=== PATIENT | female | born 1980 | race Caucasian/White ===

== ENCOUNTER 2017-08-20 04:06 | Emergency (ER) | payer MEDICAID ==
[2017-08-20] MEDS ORDERED: ONDANSETRON HCL/PF 2 MG/ML VIAL IV ONE (04:25)
[2017-08-20 04:26] LABS: Urine Bilirubin Negative (NEGATIVE); Urine Blood Negative /ul (NEGATIVE); Urine Ketone 15 mg/dL (NEGATIVE); Urine Nitrite Negative (NEGATIVE); Urine Protein 15 mg/dL (NEGATIVE); Urine Specific Gravity <=1.005 SP.GR. (1.005-1.010); Urine Urobilinogen Normal (NORMAL); Urine pH 8.5 pH (5.0-7.0)
[2017-08-20] MEDS ORDERED: ONDANSETRON HCL/PF 2 MG/ML VIAL ONE (04:32)
[2017-08-20 04:33] LABS: Urine Appearance Clear; Urine Bacteria TRACE; Urine Color Yellow; Urine RBC None Seen /hpf (0-5); Urine WBC 0-5 /hpf (0-5)
[2017-08-20 04:37] LABS: Hematocrit 42.1 % (37.0-47.0); Hemoglobin 14.4 gm/dL (12.5-16.0); Mean Cell Volume 83.9 fl (78-100); Mean Corpuscular Hemoglobin 28.7 pg (27-31); Mean Corpuscular Hgb Conc 34.2 g/dl (32-36); Mean Platelet Volume 11.1 fl (6.0-9.5); Neutrophil % 71.4 % (42-75.0); Platelet Count 204 K/mm3 (150-450); Red Blood Count 5.02 M/mm3 (4.2-5.4); Red Cell Distribution Width 12.8 % (11.5-14.0)
--- NOTE | 2017-08-20 04:37 | ERNOTE ---
Abdominal HPI - General Chief Complaint: Abdominal Pain Time Seen by Provider: 08/20/17 04:21 Source: patient Exam Limitations: clinical condition - Immun/Allergies/Home Medications Immunizatons: IMMUNIZATION HX Immunizations Up to Date Yes History of Influenza Vaccine No Hx Pneumococcal Vaccination No Allergies/Adverse Reactions: Allergies No Known Allergies Allergy (Verified 07/31/16 18:59) Home Medications: HOME MEDICATIONS Dicyclomine HCl [Bentyl] 10 - 20 mg PO TID #20 tab 08/20/17 [Last Taken Unknown] - History of Present Illness Narrative: Pt states she was awakened by sharp abdominal pain throughout the abdomen. No radiation and no modifying factors Timing: constant, getting worse Quality: moderate, severe, sharpness Activities at Onset: sleep Prior Abdominal Problems: Present: none Review of Systems - Review of Systems Constitutional: Absent: recent illness, fever, chills EYE: Present: no symptoms reported ENT: Present: no symptoms reported Respiratory: Absent: shortness of breath Cardiology: Absent: chest pain Gastrointestinal/Abdominal: Present: See HPI, nausea, vomiting Genitourinary: Absent: frequency, pain, dysuria Musculoskeletal: Absent: back pain Skin: Absent: rash Neurological: Present: no symptoms reported Endocrine: Absent: excessive sweating Hematologic/Lymphatic: Present: no symptoms reported Psych: Present: no symptoms reported - Patient's Past Medical History Patient History - Medical: No pertinent hx Patient History - Cardiac/Respiratory: No pertinent hx Patient History - Cancer: No Hx of Cancer Patient History - Surgical Procedures: Tubal Ligation, Other Patient History - Other: None LMP (females 10-50): last week - Family History Mother Family History - Cardiac/Respiratory: Asthma, COPD Father Family History - Medical: History Unknown - Social History Living Situations: spouse Abuse History: No History of abuse Psych History: Hx of Anxiety, Hx of Depression Smoking Status: Current some day smoker Have you smoked in the past 12 months: Yes Do you dip or chew tobacco: No Alcohol Use: occasionally Drug Use: none - Immunizations Immunizations Up to Date: Yes Hx Pneumococcal Vaccination: No History of Influenza Vaccine: No Physical Exam - Physical Exam General Appearance: Present: wd/wn, alert, moderate distress, irritable Head Exam: Present: normal inspection, no evidence of injury Eye Exam: Normal inspection: bilateral Neck: Present: normal inspection, nontender Respiratory: Present: no respiratory distress, no accessory muscle use, lungs clear Cardiovascular/Chest: Present: regular rate, rhythm, no murmur Gastrointestinal/Abdominal: Present: nontender, nondistended, soft, abnormal bowel sounds - hyperactive. Absent: distended, guarding, rebound Back Exam: Present: normal inspection, normal range of motion, no CVA tenderness , no vertebral tenderness Extremity Exam: Present: normal inspection, normal range of motion, no edema Neurological Exam: Present: alert, oriented Skin Exam: Present: normal color, warm/dry Lymphatic Exam: Present: no adenopathy ED Progress - Results and Orders Patient's Lab Results:: I have reviewed the patient's lab results. Results and Orders: Laboratory Tests 08/20/17 08/20/17 08/20/17 04:20 04:20 04:30 WBC 7.0 Hgb 14.4 Hct 42.1 Plt Count 204 Sodium Potassium Chloride Carbon Dioxide Anion Gap BUN Creatinine Urine Color Yellow Urine Appearance Clear Urine pH 8.5 Ur Specific [place] <=1.005 Urine Protein 15 H Urine Glucose (UA) Negative Urine Ketones 15 Urine Blood Negative Urine Nitrate Negative Urine Bilirubin Negative Prot Sulfosalicylic Acd Negative Urine Urobilinogen Normal Ur Leukocyte Esterase Negative Urine RBC None seen Urine WBC 0-5 Ur Epithelial Cells 0-5 Urine Bacteria Trace Urine Culture Comments No culture indicated Urine HCG, Qual Negative 08/20/17 04:30 WBC Hgb Hct Plt Count Sodium 140 Potassium 3.3 L Chloride 102 Carbon Dioxide 22.5 L Anion Gap 18.8 H BUN 16 Creatinine 0.98 Urine Color Urine Appearance Urine pH Ur Specific [place] Urine Protein Urine Glucose (UA) Urine Ketones Urine Blood Urine Nitrate Urine Bilirubin Prot Sulfosalicylic Acd Urine Urobilinogen Ur Leukocyte Esterase Urine RBC Urine WBC Ur Epithelial Cells Urine Bacteria Urine Culture Comments Urine HCG, Qual - Vital Signs Patient's Vital Signs:: I have reviewed the patient's vital signs. Vital Signs: Vital Signs 08/20/17 04:09 Temperature 36.6 C Pulse Rate 79 Respiratory 16 Rate Blood Pressure 93/54 O2 Sat by Pulse 96 Oximetry - X-Ray X-Ray #1 X-Ray: abdomen Interpretation: Interp. by me X-ray Comments: non specific bowel gas pattern. No evidence of obstruction - Progress/Reassessment Chief Complaint: Abdominal Pain Progress:: Improved Progress Note-Subjective: 08/20/17 06:22 Pt improved after IM bentyl. discussed abdominal pain and normal results. Encouraged pt to return to ED if not improving Departure Clinical Impression: Abdominal pain Qualifiers: Abdominal location: generalized Qualified Code(s): R10.84 - Generalized abdominal pain - Departure Disposition: Home self-care Condition: Good Instructions: Abdominal Pain, Adult, [id number] Additional Instructions: Take medicine as prescribed. See your regular doctor if symptoms persist. Return to ER if symptoms worsen Prescriptions: Dicyclomine HCl [Bentyl] 10 - 20 mg PO TID #20 tab
[2017-08-20 04:50] LABS: Albumin * 4.4 gm/dl (3.4-5.0); Anion Gap 18.8 mmol/L (6.8-13.8); BUN/Creatinine Ratio 16.3 (9.0-21.6); Bilirubin, Total 0.5 mg/dL (0.0-1.1); Ca. Corrected For Albumin 8.6 mg/dL (8.4-10.2); Calcium * 9.2 mg/dL (7.9-10.9); Carbon Dioxide 22.5 mmol/L (24-32.6); Potassium 3.3 mmol/L (3.4-4.6); Total Protein 8.4 gm/dL (6.2-8.2)
[2017-08-20] MEDS ORDERED: DICYCLOMINE HCL 10 MG/ML AMPUL IM ONE ×2 (05:13→05:16)
[2017-08-20 06:34] VITALS: BP 111/59
== END 2017-08-20 06:33 | disposition home or self-care (01) ==
LOC: ER 04:06
DX: R10.84 Generalized abdominal pain (principal)
CPT/HCPCS: 36415; 74020; 80053; 81001; 82150; 83690; 84703; 85025; 96372; 96374; 99284; J2405

== ENCOUNTER 2019-04-06 22:53 | Observation (INO) ==
[2019-04-06] MEDS ORDERED: ONDANSETRON HCL/PF 2 MG/ML VIAL IV ONE (23:50)
[2019-04-06] MEDS ORDERED: KETOROLAC TROMETHAMINE 30 MG/ML VIAL IV ONE (23:51)
[2019-04-06] MEDS ORDERED: NORMAL SALINE 1,000 ML IV ONE (23:51)
--- NOTE | 2019-04-06 23:54 | ERNOTE ---
Abdominal HPI - General Chief Complaint: Abdominal Pain Time Seen by Provider: 04/06/19 23:48 Source: patient Exam Limitations: clinical condition - Immun/Allergies/Home Medications Immunizatons: IMMUNIZATION HX Immunizations Up to Date Yes History of Influenza Vaccine No Hx Pneumococcal Vaccination No Allergies/Adverse Reactions: Allergies No Known Allergies Allergy (Verified 04/06/19 23:52) Home Medications: HOME MEDICATIONS NK 04/06/19 [Last Taken Unknown] - History of Present Illness Narrative: Patient had onset of right upper quadrant abdominal pain approximately 2 hours prior to arrival. She has had previous episodes of this 1 year and 3 years ago. She never followed up with her PCP for any further testing after those ER visits. Timing: getting worse Quality: moderate, severe, sharpness Review of Systems - Review of Systems Constitutional: Absent: recent illness, fever, chills ENT: Absent: nose congestion, nasal drainage Respiratory: Absent: shortness of breath, cough Cardiology: Absent: chest pain Gastrointestinal/Abdominal: Present: See HPI, diarrhea - today Genitourinary: Absent: frequency, pain, dysuria Musculoskeletal: Absent: back pain, muscle pain Skin: Absent: rash Neurological: Absent: headache, dizziness/light-headedness Endocrine: Absent: excessive sweating Hematologic/Lymphatic: Absent: easy bruising, easy bleeding Psych: Absent: anxiety, depressed Medical History (Updated 04/07/19 @ 04:08 by Calvin Borges DO) Bipolar 1 disorder Onset Date: Unknown History of frequent headaches Onset Date: Unknown Major depression Onset Date: Unknown Scoliosis Onset Date: Unknown Vitamin deficiency Onset Date: Unknown Surgical History: Surgical History (Updated 07/22/18 @ 17:10 by Chris Mckinney LPN) H/O tubal ligation Onset Date: Unknown Family History: Family History (Updated 07/22/18 @ 17:15 by Chris Mckinney LPN) Other No family history of disorders Social History: Preferred Language Belarusian Smoking Status Never smoker Have you smoked in the past 12 No months Abuse History No History of abuse Psych History Hx of Anxiety,Hx of Depression Alcohol Use none Drug Use none (Last Updated 07/22/18 @ 17:09 by Chris Mckinney LPN) No Social History Section defined Physical Exam - Physical Exam General Appearance: Present: wd/wn, alert, moderate distress Head Exam: Present: normal inspection, no evidence of injury Neck: Present: normal inspection, nontender, supple, full range of motion Respiratory: Present: no respiratory distress, chest nontender, lungs clear Cardiovascular/Chest: Present: regular rate, rhythm, no murmur Gastrointestinal/Abdominal: Present: normal bowel sounds, nondistended, soft, tenderness - epigastric and RUQ. , guarding - mild. Absent: rebound Back Exam: Present: normal inspection, normal range of motion, no CVA tenderness Extremity Exam: Present: normal inspection, normal range of motion, no edema Neurological Exam: Present: alert, oriented, normal mood/affect Skin Exam: Present: normal color, warm/dry Progress - Results and Orders Patient's Lab Results:: I have reviewed the patient's lab results. Results and Orders: Laboratory Tests 04/06/19 04/06/19 04/06/19 11:58 11:58 11:58 WBC 14.9 H Hgb 14.6 Hct 44.2 Plt Count 321 Neutrophils % 89.5 H Sodium 143 H Potassium 3.7 Chloride 101 Carbon Dioxide 25.8 BUN 13 Creatinine 0.91 Random Glucose 154 H Calcium 9.7 Total Bilirubin 0.4 AST 29 ALT 34 Total Protein 9.0 H Albumin 4.4 Amylase 47 Lipase 56 L Serum HCG, Qual Negative Urine Color Urine Appearance Urine pH Ur Specific [place] Urine Protein Urine Glucose (UA) Urine Ketones Urine Blood Urine Nitrate Ur Leukocyte Esterase Urine Bacteria Urine Mucus Urine Culture Comments 04/07/19 02:58 WBC Hgb Hct Plt Count Neutrophils % Sodium Potassium Chloride Carbon Dioxide BUN Creatinine Random Glucose Calcium Total Bilirubin AST ALT Total Protein Albumin Amylase Lipase Serum HCG, Qual Urine Color Dark yellow Urine Appearance Slightly cloudy Urine pH 6.5 Ur Specific [place] 1.020 Urine Protein 15 H Urine Glucose (UA) Negative Urine Ketones 15 Urine Blood Negative Urine Nitrate Negative Ur Leukocyte Esterase Negative Urine Bacteria Trace Urine Mucus Trace Urine Culture Comments No culture indicated - Vital Signs Patient's Vital Signs:: I have reviewed the patient's vital signs. Vital Signs: Vital Signs 04/06/19 23:37 Temperature 36.1 C Pulse Rate 76 Respiratory Rate 20 Blood Pressure 149/92 H O2 Sat by Pulse Oximetry 99 - CT/Ultrasound CT/Ultrasound Narrative: CT abdomen and pelvis with contrast IV and oral Mild distention of stomach and proximal small bowel filled with oral contrast material. Collapse: And distal small bowel. Bowel pattern nonspecific Per real radiology reading. - Progress/Reassessment Chief Complaint: Abdominal Pain Progress:: Improved Progress Note-Subjective: 04/07/19 04:[address] Mena and he agrees with observation admit for abdominal pain possible partial small bowel obstruction Departure Clinical Impression: Abdominal pain Qualifiers: Abdominal location: epigastric Qualified Code(s): R10.13 - Epigastric pain Elevated WBC count Qualifiers: Leukocytosis type: lymphocytosis Qualified Code(s): D72.820 - Lymphocytosis (symptomatic) - Departure Disposition: Still a patient Condition: Stable
[2019-04-07 00:04] LABS: Hematocrit 44.2 % (37.0-47.0); Hemoglobin 14.6 gm/dL (12.5-16.0); Mean Cell Volume 92.5 fl (78-100); Mean Corpuscular Hemoglobin 30.5 pg (27-31); Mean Platelet Volume 10.2 fl (8-12.5); Neutrophil # 13.4 K/mm3 (1.3-6.0); Neutrophil % 89.5 % (42-75.0); Platelet Count 321 K/mm3 (150-450); Red Blood Count 4.78 M/mm3 (4.2-5.4); Red Cell Distribution Width 13.5 % (11.5-14.0); White Blood Count 14.9 K/mm3 (4.0-10.5)
[2019-04-07 00:21] LABS: Albumin * 4.4 gm/dl (3.4-5.0); Anion Gap 19.9 mmol/L (6.8-13.8); BUN/Creatinine Ratio 14.3 (9.0-21.6); Bilirubin, Total 0.4 mg/dL (0.0-1.1); Ca. Corrected For Albumin 9.1 mg/dL (8.4-10.2); Calcium * 9.7 mg/dL (7.9-10.9); Carbon Dioxide 25.8 mmol/L (24-32.6); Potassium 3.7 mmol/L (3.4-4.6)
[2019-04-07] MEDS ORDERED: ONDANSETRON HCL/PF 2 MG/ML VIAL IV ONE (00:39)
[2019-04-07] MEDS ORDERED: DIATRIZOATE MEGLUMINE, SODIUM 30 ML BTL PO ONE (00:40)
[2019-04-07] MEDS ORDERED: NALBUPHINE HCL 20 MG/ML AMPUL IV ONE ×2 (01:05→01:46)
[2019-04-07] MEDS ORDERED: PROCHLORPERAZINE EDISYLATE 5 MG/ML VIAL IV ONE (02:54)
[2019-04-07 03:02] LABS: Urine Bilirubin Negative (NEGATIVE); Urine Blood Negative /ul (NEGATIVE); Urine Ketone 15 mg/dL (NEGATIVE); Urine Nitrite Negative (NEGATIVE); Urine Protein 15 mg/dL (NEGATIVE); Urine Urobilinogen Normal (NORMAL); Urine pH 6.5 pH (5.0-7.0)
[2019-04-07 03:03] LABS: Urine Appearance Slightly Cloudy (CLEAR); Urine Bacteria TRACE; Urine Color Dark Yellow; Urine Mucus TRACE; Urine RBC TRACE /hpf (0-5); Urine WBC TRACE /hpf (0-5)
[2019-04-07] MEDS ORDERED: MORPHINE SULFATE 2 MG/ML DISP.SYRIN IV ONE (03:07)
[2019-04-07] MEDS: MORPHINE SULFATE 2 MG/ML DISP.SYRIN IV PRN ×4 (04:51→13:58)
[2019-04-07] MEDS ORDERED: ACETAMINOPHEN 500 MG TABLET PO PRN (08:29)
[2019-04-07] MEDS: KETOROLAC TROMETHAMINE 30 MG/ML VIAL IV PRN ×2 (09:38→16:54)
[2019-04-07] MEDS: PROCHLORPERAZINE EDISYLATE 5 MG/ML VIAL IV PRN (09:39)
--- NOTE | 2019-04-07 11:29 | HP ---
Chief Complaint - Chief Complaint Date of Service: 04/07/19 Time of Service: : Chief Complaint: Abdominal Pain History of Present Illness: Amira is a 38 yo female that presents to the [facility] ER with sudden onset of epigastric and RUQ abdominal pain this morning. She reports no change in medication, diet, or activity. She reports having normal bowel movements until today which became loose. She has had nausea and vomiting, the last episodes having a little bit of blood. She reports that for the last month she has vomited daily, no blood in these episodes. She reports no problem with fatty foods. She does admit to heart burn but it is nothing like today's symptoms. She had a CT scan in the ER which showed possible early small bowel obstruction. She has a WBC of 14k. Denies fever and chills. 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 Smoking Status Former smoker Have you smoked in the past 12 No months Do you dip or chew tobacco No Abuse History No History of abuse Psych History Hx of Anxiety,Hx of Depression Alcohol Use none Drug Use none (Last Updated 07/22/18 @ 17:09 by Chris Mckinney LPN) No Social History Section defined Review Of Systems (GEN) - Review of Systems Generalized/Overall Review: Absent: Weakness, Chills, Fever EENTM: Present: No Symptoms Reported Respiratory: Absent: Cough, Shortness of Breath Cardiac: Absent: Chest Pain, Edema, Palpitations Abdominal: Present: Nausea, Vomiting, Hematemesis, Abdominal Pain. Absent: Constipation Genitourinary: Present: No Symptoms Reported Musculoskeletal: Present: No Symptoms Reported Neurological: Present: No Symptoms Reported Skin: Present: No Symptoms Reported Endocrine: Present: No Symptoms Reported Immunizations: IMMUNIZATION HX Immunizations Up to Date Yes History of Influenza Vaccine No Hx Pneumococcal Vaccination No Allergies/Adverse Reactions: Allergies Allergy/AdvReac Type Severity Reaction Status Date / Time No Known Allergies Allergy Verified 04/06/19 23:52 Home Medications: HOME MEDICATIONS NK 04/06/19 [Last Taken Unknown] Exam - Exam Vital Signs: Vital Signs - Last Taken Temp 36.6 C 04/07/19 08:13 Pulse 78 04/07/19 08:13 Resp 16 04/07/19 08:13 BP 106/57 04/07/19 08:13 Pulse Ox 97 04/07/19 08:13 Constitutional: Present: Alert, Oriented x3 ENT Exam: Present: normal ENT inspection Eye Exam: bilateral eye: normal inspection Respiratory: Present: lungs clear, normal breath sounds, no respiratory distress Cardiovascular/Chest: Present: regular rate, rhythm, no murmur Abdomen: Present: tender - Epigastric and severe RUQ pain, guarding - RUQ, hypoactive Skin Exam: Present: normal color, warm/dry, no cyanosis Lymphatic: Present: no adenopathy Appearance: Present: appropriate appearance, appropriate insight Eye contact: Present: cooperative, good eye contact, normal speech Thoughts: Present: normal thought pattern, no apparent hallucination Diagnostic Studies: Abnormal Lab Results 04/06/19 04/06/19 04/07/19 Range/Units 11:58 11:58 02:58 WBC 14.9 H (4.0-10.5) K/mm3 Immature Gran # (Auto) 0.05 H (0.000-0.0310) K/mm3 Neutrophils % 89.5 H (42-75.0) % Lymphocytes % 6.3 L (20-51) % Neutrophils # 13.4 H (1.3-6.0) K/mm3 Lymphocytes # 0.94 L (1.5-3.5) k/mm3 Sodium 143 H (132-142) mmol/L Plasma Sodium 144 H (130-142) mmol/L Anion Gap 19.9 H (6.8-13.8) mmol/L Random Glucose 154 H (70-110) mg/dL Total Protein 9.0 H (6.2-8.2) gm/dL Lipase 56 L (73-393) U/L Urine Protein 15 H (NEGATIVE) mg/dL Urine WBC Trace H (0-5) /hpf Laboratory Results WBC 14.9 K/mm3 (4.0-10.5) H 04/06/19 11:58 RBC 4.78 M/mm3 (4.2-5.4) 04/06/19 11:58 Hgb 14.6 gm/dL (12.5-16.0) 04/06/19 11:58 Hct 44.2 % (37.0-47.0) 04/06/19 11:58 MCV 92.5 fl (78-100) 04/06/19 11:58 MCH 30.5 pg (27-31) 04/06/19 11:58 MCHC 33.0 g/dl (32-36) 04/06/19 11:58 RDW 13.5 % (11.5-14.0) 04/06/19 11:58 Plt Count 321 K/mm3 (150-450) 04/06/19 11:58 MPV 10.2 fl (8-12.5) 04/06/19 11:58 Immature Gran % (Auto) 0.30 % (0.001-0.429) 04/06/19 11:58 Immature Gran # (Auto) 0.05 K/mm3 (0.000-0.0310) H 04/06/19 11:58 89.5 % (42-75.0) H 04/06/19 11:58 6.3 % (20-51) L 04/06/19 11:58 3.5 % (0.0-9) 04/06/19 11:58 0.1 % (0.0-3.0) 04/06/19 11:58 0.3 % (0.0-1.0) 04/06/19 11:58 Nucleated RBC % 0.0 k/mm3 (0-1) 04/06/19 11:58 13.4 K/mm3 (1.3-6.0) H 04/06/19 11:58 0.94 k/mm3 (1.5-3.5) L 04/06/19 11:58 0.5 k/mm3 (0.0-1.0) 04/06/19 11:58 0.0 k/mm3 (0.0-0.7) 04/06/19 11:58 Absolute Basophils 0.1 k/mm3 (0.0-0.1) 04/06/19 11:58 Sodium 143 mmol/L (132-142) H 04/06/19 11:58 144 mmol/L (130-142) H 04/06/19 11:58 Potassium 3.7 mmol/L (3.4-4.6) 04/06/19 11:58 Chloride 101 mmol/L (97-106) 04/06/19 11:58 Carbon Dioxide 25.8 mmol/L (24-32.6) 04/06/19 11:58 19.9 mmol/L (6.8-13.8) H 04/06/19 11:58 BUN 13 mg/dL (3-23) 04/06/19 11:58 0.91 mg/dL (0.4-1.4) 04/06/19 11:58 Est GFR (Non-Af Amer) 74 mL/min (60-130) 04/06/19 11:58 14.3 (9.0-21.6) 04/06/19 11:58 154 mg/dL (70-110) H 04/06/19 11:58 Calcium 9.7 mg/dL (7.9-10.9) 04/06/19 11:58 Calcium Adj for Albumin 9.1 mg/dL (8.4-10.2) 04/06/19 11:58 0.4 mg/dL (0.0-1.1) 04/06/19 11:58 AST 29 U/L (0-48) 04/06/19 11:58 ALT 34 U/L (19-67) 04/06/19 11:58 74 U/L (50-170) 04/06/19 11:58 9.0 gm/dL (6.2-8.2) H 04/06/19 11:58 4.4 gm/dl (3.4-5.0) 04/06/19 11:58 Amylase 47 U/L (25-115) 04/06/19 11:58 56 U/L (73-393) L 04/06/19 11:58 Serum HCG, Qual Negative (NEGATIVE) 04/06/19 11:58 Dark yellow 04/07/19 02:58 Slightly cloudy (CLEAR) 04/07/19 02:58 6.5 pH (5.0-7.0) 04/07/19 02:58 Ur Specific [place] 1.020 SP.GR. (1.005-1.010) 04/07/19 02:58 15 mg/dL (NEGATIVE) H 04/07/19 02:58 Negative mg/dL (NEGATIVE) 04/07/19 02:58 15 mg/dL (NEGATIVE) 04/07/19 02:58 Negative /ul (NEGATIVE) 04/07/19 02:58 Negative (NEGATIVE) 04/07/19 02:58 Negative mg/dl (NEGATIVE) 04/07/19 02:58 Prot Sulfosalicylic Acd Negative mg/dL (0) 04/07/19 02:58 Normal EU/dl (NORMAL) 04/07/19 02:58 Ur Leukocyte Esterase Negative /ul (NEGATIVE) 04/07/19 02:58 Trace /hpf (0-5) 04/07/19 02:58 Trace /hpf (0-5) H 04/07/19 02:58 Ur Epithelial Cells 0-5 /hpf (0-5) 04/07/19 02:58 Trace (NONE) 04/07/19 02:58 Trace (NONE) 04/07/19 02:58 No culture indicated 04/07/19 02:58 Assessment/Plan - Narrative Narrative: Amira is a 38 yo female with severe abdominal pain in the epigastric and RUQ. CT in the ER showed possible early small bowel obstructions vs gastroenteritis. She does have elevated WBC, but no fever. Stools have overall been normal. She has also had nausea and vomiting. Will admit to observation and due to severe RUQ abdominal pain with guarding will get US to further evaluate gall bladder. If she does have early bowel obstruction will treat with NPO and pain control. - Assessment/Plan (1) Abdominal pain Problem: Acute Qualifiers: Abdominal location: epigastric Qualified Code(s): R10.13 - Epigastric pain
[2019-04-07] MEDS ORDERED: MAG HYDROX/ALUMINUM HYD/SIMETH 30 ML UDC PO ONE (14:23)
[2019-04-07] MEDS ORDERED: BELLADONNA ALKALOIDS/PHENOBARB ELIXIR PO ONE (14:23)
[2019-04-07] MEDS ORDERED: SUCRALFATE 1 G/10 ML UDC PO ONE (14:23)
[2019-04-07] MEDS ORDERED: LIDOCAINE HCL 20 ML UDC PO ONE (14:23)
[2019-04-08] MEDS: KETOROLAC TROMETHAMINE 30 MG/ML VIAL IV PRN ×2 (02:56→10:20)
[2019-04-08] MEDS: NORMAL SALINE 1,000 ML IV PRN ×2 (02:56→13:54)
[2019-04-08] MEDS: MORPHINE SULFATE 2 MG/ML DISP.SYRIN IV PRN ×7 (04:14→18:09)
[2019-04-08] MEDS: PROCHLORPERAZINE EDISYLATE 5 MG/ML VIAL IV PRN (04:25)
[2019-04-08 08:59] LABS: Hemoglobin 10.6 gm/dL (12.5-16.0); Mean Cell Volume 93.5 fl (78-100); Mean Corpuscular Hgb Conc 32.1 g/dl (32-36); Mean Platelet Volume 9.7 fl (8-12.5); Neutrophil # 5.6 K/mm3 (1.3-6.0); Neutrophil % 79.3 % (42-75.0); Platelet Count 161 K/mm3 (150-450); Red Blood Count 3.53 M/mm3 (4.2-5.4); Red Cell Distribution Width 13.7 % (11.5-14.0); White Blood Count 7.1 K/mm3 (4.0-10.5)
[2019-04-08 09:16] LABS: Anion Gap 14.2 mmol/L (6.8-13.8); BUN/Creatinine Ratio 26.1 (9.0-21.6); Bilirubin, Total 0.6 mg/dL (0.0-1.1); Ca. Corrected For Albumin 8.5 mg/dL (8.4-10.2); Potassium 3.2 mmol/L (3.4-4.6); Total Protein 6.1 gm/dL (6.2-8.2)
--- NOTE | 2019-04-08 12:00 | ANES ---
Anesthesia Pre Procedure Eval Vitals/Labs: Last Vital Signs Temp 37.0 C 04/08/19 10:12 Pulse 76 04/08/19 10:12 Resp 16 04/08/19 10:12 BP 124/80 04/08/19 10:12 Pulse Ox 100 04/08/19 10:12 HOME MEDICATIONS NK 04/06/19 [Last Taken Unknown] Allergies/Adverse Reactions: Allergies Allergy/AdvReac Type Severity Reaction Status Date / Time No Known Allergies Allergy Verified 04/06/19 23:52 - Planned Procedure Planned Procedure: EGD Medication List Reviewed:: Yes Allergies Verified: Yes Medical History (Updated 04/07/19 @ 11:29 by Jenaro Mena DO) Bipolar 1 disorder Onset Date: Unknown History of frequent headaches Onset Date: Unknown Major depression Onset Date: Unknown Scoliosis Onset Date: Unknown Vitamin deficiency Onset Date: Unknown Surgical History (Updated 04/07/19 @ 11:29 by Jenaro Mena DO) H/O tubal ligation Onset Date: Unknown Family History (Updated 07/22/18 @ 17:15 by Chris Mckinney LPN) Other No family history of disorders - Family Anesthesia History Family History:: no untoward family reactions to anesthesia, no familial bleeding tendencies, no family history of clotting disorders, no family history of premature - Airway/Neck/Teeth Within Normal Limits:: Yes Teeth Condition: intact Mallampatti Score: 1 Thyromental (T-M) distance: > 6 cm Mandibulo Hyoid distance: > 3 cm - Respiratory Respiratory Physical: lungs clear Smoking Status: Former smoker Discussed smoking cessation including day of surgery: No Sleep Apnea currently treated: No Sleep Apnea by current assessment: No Discussed Risks/Treatment of SHAILESH: No - Cardiovascular Tolerate Activity: Good Heart Sounds: S1 & S2, Regular - Anesthesia Assessment and Plan ASA Class: PS, II, E Anesthesia Type Plan: MAC
--- NOTE | 2019-04-08 12:05 | CONS ---
HPI - General Source: patient Exam Limitations: no limitations - History of Present Illness Timing/Duration: changing over time Severity: moderate Modifying Factors - (Worsens): Reports: other - Hasn't eaten recently Modifying Factors - (Improves): Reports: other - Prior to admission eating did not improve her symptoms Associated Symptoms: denies symptoms, nausea, vomiting Allergies/Adverse Reactions: Allergies No Known Allergies Allergy (Verified 04/06/19 23:52) Home Medications: Home Medications Medication Instructions Recorded Last Taken NK 04/06/19 Unknown Procedures CLOSURE SKIN & SUBCUTANEOUS NEC (02/12/10) Medications - Medications Current Medications: Current Medications Sodium Chloride (Sodium Chloride 0.9%) 1,000 mls @ 100 mls/hr IV .Q10H PRN PRN Reason: HYDRATION Stop: 05/07/19 16:43 Last Admin: 04/08/19 02:56 Dose: 100 mls/hr Documented by: Ketorolac Tromethamine (Toradol) 30 mg IV Q6H PRN PRN Reason: Moderate Pain (pain scale 4-6) Stop: 04/12/19 08:30 Last Admin: 04/08/19 10:20 Dose: 30 mg Documented by: Morphine Sulfate (Morphine Sulfate) 2 mg IV Q1H PRN PRN Reason: Severe Pain (pain scale 7-10) Stop: 05/07/19 11:29 Last Admin: 04/08/19 08:33 Dose: 2 mg Documented by: Prochlorperazine Edisylate (Compazine) 5 mg IV Q6H PRN PRN Reason: Nausea Stop: 05/07/19 04:16 Last Admin: 04/08/19 04:25 Dose: 5 mg Documented by: Review of Systems - Review of Systems Generalized/Overall Review: Present: Malaise EENTM: Present: No Symptoms Reported Respiratory: Present: No Symptoms Reported Cardiac: Present: No Symptoms Reported Abdominal: Present: Nausea, Vomiting, Hematemesis, Abdominal Pain, Constipation, Diarrhea Genitourinary: Present: No Symptoms Reported Musculoskeletal: Present: No Symptoms Reported Neurological: Present: No Symptoms Reported Skin: Present: No Symptoms Reported Endocrine: Present: No Symptoms Reported Physical Examination - Exam Vital Signs: Vital Signs - Last Taken Temp 37.0 C 04/08/19 10:12 Pulse 76 04/08/19 10:12 Resp 16 04/08/19 10:12 BP 124/80 04/08/19 10:12 Pulse Ox 100 04/08/19 10:12 O2 Oxygen Delivery Method Room Air Constitutional: Present: Alert, Oriented x3, Cooperative ENT Exam: Present: hearing grossly normal Eye Exam: bilateral eye: normal inspection Neck: Present: supple Breasts: Present: Exam deferred Respiratory: Present: lungs clear, normal breath sounds Cardiovascular/Chest: Present: normal peripheral pulses, regular rate, rhythm Abdomen: Present: Normal bowel sounds, soft, nondistended, tender, guarding. 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 nml as tested Appearance: Present: appropriate appearance Eye contact: Present: cooperative, good eye contact, normal speech Thoughts: Present: normal thought pattern - Results and Findings: Lab/Microbiology results last 24 hrs: Abnormal/Pending Laboratory Last 24 HRS 04/08/19 04/08/19 08:56 08:56 RBC 3.53 L Hgb 10.6 L Hct 33.0 L Neutrophils % 79.3 H Lymphocytes % 14.0 L Lymphocytes # 1.00 L Potassium 3.2 L Anion Gap 14.2 H BUN/Creatinine Ratio 26.1 H Alkaline Phosphatase 49 L Total Protein 6.1 L Albumin 3.0 L Lipase 55 L - Assessments/Findings (1) Abdominal pain Problem: Acute Qualifiers: Abdominal location: epigastric Qualified Code(s): R10.13 - Epigastric pain (2) Vomiting Problem: Acute Qualifiers: Vomiting type: unspecified Vomiting Intractability: non-intractable Nausea presence: with nausea Qualified Code(s): R11.2 - Nausea with vomiting, unspecified Plan - Plan Plan: I reviewed the CT scan images with Dr. Mena. Reviewed her history. I also reviewed her ultrasound. Her lab work was reviewed. It is reassuring that her white count is normal today. I recommend an EGD to evaluate for ulcer disease. The patient and Dr. Mena are in agreement.
--- NOTE | 2019-04-08 13:03 | ANES ---
Post Anesthesia Discharge - Transfer of Care Transfer of Care handoff given to nurse: Yes - Discharge to [facility] Discharge to [facility]-no complications/pt stable: Yes - Awake and comfortable.
--- NOTE | 2019-04-08 13:35 | OR ---
Operative Report - Dictated Report Narrative: Date of Service: 04/08/19 Procedure: EGD with biopsy Pre-procedure diagnosis: Abdominal pain, nausea vomiting Post-procedure diagnosis: Gastritis, duodenal ulcer Surgeon: Dr. Venus Kohler Anesthesia: MAC Indication for procedure: Amira is a pleasant 38-year-old female with abdominal pain and nausea vomiting. Description of procedure: After appropriate informed consent was obtained, patient was taken to the endoscopy suite placed in the left lateral decubitus position. Monitors were applied, appropriate sedation was achieved. A lubricated gastroscope was inserted and advanced into the second portion of the duodenum. She has small duodenal ulcers in the duodenal bulb. The duodenal ulcers were not bleeding. There was a small amount of blood streaking in the body of the stomach. The scope was slowly withdrawn. The scope was withdrawn to the antrum. An antral biopsy was taken. A biopsy for Aleja was also taken. The scope was retroflexed, the stomach appeared showed signs of gastritis. Scope was slowly withdrawn to the GE junction, the Z line appeared normal. The excess air was suctioned and the scope was slowly removed. Complications: none Specimens to pathology: antral biopsy, duodenal biopsy, ALEJA Estimated blood loss: minimal Disposition: I discussed the patient with Dr. Mena, she needs to avoid NSAIDs. She'll be started on Protonix and Carafate.
[2019-04-08] MEDS ORDERED: PANTOPRAZOLE SODIUM 80 MG in NORMAL SALINE 100 ML IV ONE (13:53)
--- NOTE | 2019-04-08 14:22 | ANES ---
Post Anesthesia Assessment - Vital Signs Vitals: Last Vital Signs Temp 37.0 C 04/08/19 10:12 Pulse 76 04/08/19 10:12 Resp 16 04/08/19 10:12 BP 124/80 04/08/19 10:12 Pulse Ox 100 04/08/19 10:12 Airway Patency: Normal - Mental Status Level Of Consciousness: Awake, Alert, Appropriate - Pain Level Pain Score: 0 - N/V Assessment Nausea/Vomiting Presence: None Dehydration:: No
[2019-04-08] MEDS: SUCRALFATE 1 G TABLET PO SCH ×2 (16:52→20:51)
[2019-04-08] MEDS: HYDROmorphone HCL 1 MG/ML DISP.SYRIN IV PRN ×2 (18:52→21:20)
--- NOTE | 2019-04-08 23:46 | PN ---
Subjective - Date and Time Seen Date: 04/08/19 Time: 18:00 Subjective Narrative: Amira continued to have severe abdominal pain. Consulted general surgery to evaluate with EGD as symptoms were out of proportion to CT findings. EGD performed showed duodenal ulcer. Started on protonix and carafate. Dilaudid for breakthrough pain. No fever, chills. Objective - Vitals Vitals: Last Vital Signs Temp 36.8 C 04/08/19 21:09 Pulse 59 L 04/08/19 21:09 Resp 16 04/08/19 21:09 BP 120/83 04/08/19 21:09 Pulse Ox 98 04/08/19 21:09 - Abnormal Lab Findings Abnormal Lab Findings: Abnormal Lab Results 04/08/19 04/08/19 Range/Units 08:56 08:56 RBC 3.53 L (4.2-5.4) M/mm3 Hgb 10.6 L (12.5-16.0) gm/dL Hct 33.0 L (37.0-47.0) % Neutrophils % 79.3 H (42-75.0) % Lymphocytes % 14.0 L (20-51) % Lymphocytes # 1.00 L (1.5-3.5) k/mm3 Potassium 3.2 L (3.4-4.6) mmol/L Anion Gap 14.2 H (6.8-13.8) mmol/L BUN/Creatinine Ratio 26.1 H (9.0-21.6) Alkaline Phosphatase 49 L (50-170) U/L Total Protein 6.1 L (6.2-8.2) gm/dL Albumin 3.0 L (3.4-5.0) gm/dl Lipase 55 L (73-393) U/L - Exam Constitutional: Present: Alert, Oriented x3, Cooperative ENT Exam: Present: hearing grossly normal Respiratory: Present: lungs clear, normal breath sounds Cardiovascular/Chest: Present: regular rate, rhythm, no murmur Abdomen: Present: soft, tender - epigastric and RUQ pain to palpation, hypoactive Appearance: Present: appropriate appearance, appropriate insight Eye contact: Present: cooperative, good eye contact, normal speech Assessment/Plan - Problems/Diagnosis (1) Duodenal ulcer Problem: Acute Narrative: Treating with protonix, carafate, and dilaudid for breakthrough pain. In too much pain to discharge to home today. Will continue to treat with IV dilaudid for breakthrough severe pain. Once prontonix and carafate begin to improve symptoms will convert to oral pain medications and discharge to home.
[2019-04-09] MEDS: HYDROmorphone HCL 1 MG/ML DISP.SYRIN IV PRN ×5 (01:32→06:37)
[2019-04-09] MEDS: NORMAL SALINE 1,000 ML IV PRN (02:21)
[2019-04-09] MEDS: SUCRALFATE 1 G TABLET PO SCH ×2 (06:41→11:38)
[2019-04-09] MEDS ORDERED: PANTOPRAZOLE SODIUM 40 MG in NORMAL SALINE 100 ML IV ONE (08:28)
[2019-04-09] MEDS ORDERED: oxyCODONE HCL/ACETAMINOPHEN 1 TAB TABLET PO PRN (08:28)
[2019-04-09 09:06] LABS: Albumin * 2.8 gm/dl (3.4-5.0); Anion Gap 10.6 mmol/L (6.8-13.8); BUN/Creatinine Ratio 13.6 (9.0-21.6); Bilirubin, Total 0.4 mg/dL (0.0-1.1); Ca. Corrected For Albumin 8.1 mg/dL (8.4-10.2); Calcium * 7.5 mg/dL (7.9-10.9); Carbon Dioxide 24.7 mmol/L (24-32.6); Potassium 3.3 mmol/L (3.4-4.6); Total Protein 5.6 gm/dL (6.2-8.2)
[2019-04-09 09:16] LABS: Hematocrit 30.9 % (37.0-47.0); Hemoglobin 9.8 gm/dL (12.5-16.0); Mean Cell Volume 95.7 fl (78-100); Mean Corpuscular Hemoglobin 30.3 pg (27-31); Mean Corpuscular Hgb Conc 31.7 g/dl (32-36); Mean Platelet Volume 10.4 fl (8-12.5); Neutrophil # 3.5 K/mm3 (1.3-6.0); Neutrophil % 68.2 % (42-75.0); Platelet Count 139 K/mm3 (150-450); Red Blood Count 3.23 M/mm3 (4.2-5.4); Red Cell Distribution Width 13.6 % (11.5-14.0); White Blood Count 5.1 K/mm3 (4.0-10.5)
--- NOTE | 2019-04-09 09:28 | PN ---
Dictated Progress Note - Date and Time Seen: Date: 04/09/19 Time: : - Progress Note Narrative: Lesion continues to have pain, but states she wants to go home. No BM for two days. Mild distress non labored respirations abd soft, no rebound or guarding, TTP right of abdomen Vital Signs - Last Taken Temp 36.4 C 04/09/19 01:00 Pulse 69 04/09/19 01:00 Resp 16 04/09/19 01:00 BP 127/91 H 04/09/19 01:00 Pulse Ox 99 04/09/19 01:00 Abnormal/Pending Laboratory Last 24 HRS 04/09/19 08:51 RBC 3.23 L Hgb 9.8 L Hct 30.9 L MCHC 31.7 L Plt Count 139 L Lymphocytes # 1.07 L Imp: duodenal ulcer gastritis Plan: dc planning protonix and carafate, avoid nsaids WBC decreased
--- NOTE | 2019-04-09 12:44 | DS ---
(1) Duodenal ulcer Problem: Acute Description of Stay: Amira is a 38 yo female that presented to the ER with severe abdominal pain. CT initially showed possible early bowel obstruction. She was admitted for pain control and made NPO for bowel rest. Abdominal pain continued to be severe in the RUQ and epigastric area. She had a gall bladder US that was unremarkable. She was having bowel movements so bowel obstruction did not appear likely. Her severe pain was still unknown so general surgery was consulted and performed an EGD on 04/08/19 which showed a non-bleeding duodenal ulcer. She was started on carafate and protonix and pain was treated with IV diluadid and then transitioned to percocet. She reports pain is still significant but is improved enough that she wishes to be discharged to home. I will continue carafate and protonix for a month, as well as percocet for breakthrough pain. Procedures Performed: see notes below List Procedures: EGD 04/08/19 Results and Findings: Lab Pending Results 04/06/19 11:58: Serum HCG, Qual Negative 04/06/19 11:58: WBC 14.9 H, RBC 4.78, Hgb 14.6, Hct 44.2, MCV 92.5, MCH 30.5, MCHC 33.0, RDW 13.5, Plt Count 321, MPV 10.2, Immature Gran % (Auto) 0.30, Immature Gran # (Auto) 0.05 H, Neutrophils % 89.5 H, Lymphocytes % 6.3 L, Monocytes % 3.5, Eosinophils % 0.1, Basophils % 0.3, Nucleated RBC % 0.0, Neutrophils # 13.4 H, Lymphocytes # 0.94 L, Monocytes # 0.5, Eosinophils # 0.0, Absolute Basophils 0.1 04/06/19 11:58: Sodium 143 H, Plasma Sodium 144 H, Potassium 3.7, Chloride 101, Carbon Dioxide 25.8, Anion Gap 19.9 H, BUN 13, Creatinine 0.91, Est GFR (Non-Af Amer) 74, BUN/Creatinine Ratio 14.3, Random Glucose 154 H, Calcium 9.7, Calcium Adj for Albumin 9.1, Total Bilirubin 0.4, AST 29, ALT 34, Alkaline Phosphatase 74, Total Protein 9.0 H, Albumin 4.4, Amylase 47, Lipase 56 L 04/07/19 02:58: Urine Color Dark yellow, Urine Appearance Slightly cloudy, Urine pH 6.5, Ur Specific [place] 1.020, Urine Protein 15 H, Urine Glucose (UA) Negative, Urine Ketones 15, Urine Blood Negative, Urine Nitrate Negative, Urine Bilirubin Negative, Prot Sulfosalicylic Acd Negative, Urine Urobilinogen Normal, Ur Leukocyte Esterase Negative, Urine RBC Trace, Urine WBC Trace H, Ur Epithelial Cells 0-5, Urine Bacteria Trace, Urine Mucus Trace, Urine Culture Comments No culture indicated 04/08/19 08:56: WBC 7.1 D, RBC 3.53 L, Hgb 10.6 L, Hct 33.0 L, MCV 93.5, MCH 30.0, MCHC 32.1, RDW 13.7, Plt Count 161, MPV 9.7, Immature Gran % (Auto) 0.10, Immature Gran # (Auto) 0.01, Neutrophils % 79.3 H, Lymphocytes % 14.0 L, Monocytes % 6.0, Eosinophils % 0.3, Basophils % 0.3, Nucleated RBC % 0.0, Neutrophils # 5.6, Lymphocytes # 1.00 L, Monocytes # 0.4, Eosinophils # 0.0, Absolute Basophils 0.0 04/08/19 08:56: Sodium 139, Plasma Sodium 139, Potassium 3.2 L, Chloride 104, Carbon Dioxide 24.0, Anion Gap 14.2 H, BUN 18, Creatinine 0.69, Est GFR (Non-Af Amer) 102 D, BUN/Creatinine Ratio 26.1 H, Random Glucose 74 D, Calcium 8.0, Calcium Adj for Albumin 8.5, Total Bilirubin 0.6, AST 31, ALT 34, Alkaline Phosphatase 49 L, Total Protein 6.1 L, Albumin 3.0 L, Amylase 34, Lipase 55 L 04/08/19 12:56: Pathology Specimen Spec to path 04/09/19 08:51: WBC 5.1 D, RBC 3.23 L, Hgb 9.8 L, Hct 30.9 L, MCV 95.7, MCH 30.3, MCHC 31.7 L, RDW 13.6, Plt Count 139 L, MPV 10.4, Immature Gran % (Auto) 0.20, Immature Gran # (Auto) 0.01, Neutrophils % 68.2, Lymphocytes % 21.1, Monocytes % 8.3, Eosinophils % 1.4, Basophils % 0.8, Nucleated RBC % 0.0, Neutrophils # 3.5, Lymphocytes # 1.07 L, Monocytes # 0.4, Eosinophils # 0.1, Absolute Basophils 0.0 04/09/19 08:51: Sodium 138, Plasma Sodium 138, Potassium 3.3 L, Chloride 106, Carbon Dioxide 24.7, Anion Gap 10.6, BUN 9, Creatinine 0.66, Est GFR (Non-Af Amer) 108, BUN/Creatinine Ratio 13.6, Random Glucose 77, Calcium 7.5 L, Calcium Adj for Albumin 8.1 L, Total Bilirubin 0.4, AST 24, ALT 25, Alkaline Phosphatase 47 L, Total Protein 5.6 L, Albumin 2.8 L Discharge Location: Home Disposition: Home self-care Condition: Stable Discharge Activity: Activity as tolerated Discharge Diet: Other - [place] diet Referrals: Jenaro Mena DO [Staff Physician] - One Week Problem Oriented Discharge Instructions to Patient/Family: Gastritis, Adult, [id number] Additional Patient Instructions (free text): Avoid aleve, ibuprofen, aspirin, tobacco, alcohol, and any foods that worsen symptoms. Prescriptions (Any new or edited meds): Sucralfate [Carafate] 1 g PO ACHS #120 tab oxyCODONE HCL/ACETAMINOPHEN [Percocet 5 MG/325 MG] 2 tab PO Q6H PRN #60 tab PRN Reason: Pain Pantoprazole Sodium [Protonix] 40 mg PO BID #60 tab Complete Home Medications List: Complete Home Medication List: Pantoprazole Sodium [Protonix] 40 mg PO BID #60 tab 04/09/19 Sucralfate [Carafate] 1 g PO ACHS #120 tab 04/09/19 oxyCODONE HCL/ACETAMINOPHEN [Percocet 5 MG/325 MG] 2 tab PO Q6H PRN #60 tab 04/09/19
[2019-04-09 13:57] VITALS: BP 134/96
== END 2019-04-09 13:15 | disposition home or self-care (01) ==
LOC: MS 22:53 → ER 22:53 → MS 04-07 04:31
PROVIDERS: ADMIT Family Medicine; ATTEND Family Medicine
CPT/HCPCS: 36415; 74177; 76705; 80053; 81001; 82150; 83690; 84703; 85025; 87081; 88305; 88312; 88313; 96374; 96375; 99285; G0378; J2405; Q9967

== ENCOUNTER 2020-05-15 22:32 | Observation (INO) ==
[2020-05-15] MEDS ORDERED: ONDANSETRON HCL/PF 2 MG/ML VIAL ONE (22:41)
[2020-05-15] MEDS ORDERED: HYDROmorphone HCL 1 MG/ML DISP.SYRIN IV ONE ×2 (22:43→23:22)
[2020-05-15] MEDS ORDERED: ONDANSETRON HCL/PF 2 MG/ML VIAL IV ONE (22:45)
--- NOTE | 2020-05-15 22:59 | ERNOTE ---
Abdominal HPI - Narrative Date of Service: 05/15/20 - General Chief Complaint: Abdominal Pain Time Seen by Provider: 05/15/20 22:54 Source: patient, family Exam Limitations: clinical condition - Immun/Allergies/Home Medications Immunizatons: IMMUNIZATION HX Immunizations Up to Date Yes History of Influenza Vaccine Yes Hx Pneumococcal Vaccination No Allergies/Adverse Reactions: Allergies levofloxacin [From Levaquin] Allergy (Intermediate, Verified 05/15/20 22:38) Hives Home Medications: HOME MEDICATIONS pantoprazole 40 mg tablet,delayed release 40 mg PO DAILY #30 tab 02/26/20 [Last Taken Unknown] sucralfate 1 gram tablet 1 g PO ACHS #60 tab 02/26/20 [Last Taken Unknown] Amitriptyline HCl [Elavil] 25 mg PO HS #30 tab 05/18/20 [Last Taken Unknown] Pantoprazole Sodium [Protonix] 40 mg PO DAILY@0700 #30 tablet. 05/18/20 [Last Taken Unknown] SUMAtriptan SUCCINATE [Imitrex] 100 mg PO DAILY #9 tab 05/18/20 [Last Taken Unknown] Sucralfate [Carafate] 1 g PO ACHS PRN #60 tab 05/18/20 [Last Taken Unknown] - History of Present Illness Narrative: Patient presents to the ER with onset of severe epigastric pain about 1.5 hours [employer]. She has had recurrent episodes of this type of pain. She had an upper GI endoscopy about a year ago and was diagnosed with a duodenal ulcer. She takes pantaprazole 40 mg daily and sucralfate. She was on a burst and taper of prednisone for a rash about a month ago, 40 mg po daily for a week, then 20 mg daily for a week, then 10 mg daily for a week. Review of Systems - Review of Systems Constitutional: Absent: fever, chills EYE: Present: no symptoms reported ENT: Present: no symptoms reported Respiratory: Present: no symptoms reported Cardiology: Present: no symptoms reported Gastrointestinal/Abdominal: Present: See HPI, abdominal pain, eating less, drinking less Genitourinary: Present: no symptoms reported Musculoskeletal: Present: no symptoms reported Skin: Present: no symptoms reported Neurological: Present: no symptoms reported Endocrine: Present: no symptoms reported Hematologic/Lymphatic: Present: no symptoms reported Medical History (Last Reviewed 05/26/20 @ 15:05 by Rasisa Rai MD) Duodenal ulcer (Acute) Onset Date: 04/08/19 Dr. Venus Kohler [facility]. Bipolar 1 disorder Onset Date: Unknown Scoliosis Onset Date: Unknown Vitamin deficiency Onset Date: Unknown History of frequent headaches Onset Date: Unknown Major depression Onset Date: Unknown Surgical History: Surgical History (Last Reviewed 05/26/20 @ 15:05 by Raissa Rai MD) History of esophagogastroduodenoscopy (EGD) Onset Date: 04/08/19 Dr. Venus Kohler [facility]. Duodenal ulcer. 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 Highest education level completed: GED or equivalent Sexually Active: Yes Service: No Tobacco: Smoking Status: Former smoker Alcohol: alcohol intake: current alcohol intake frequency: a few times a month Substance Use: substance use type: does not use Dietary Habits: caffeine: No Sarah/Judaism: special sarah needs: No Physical Exam - Physical Exam General Appearance: Present: wd/wn, alert, moderate distress Head Exam: Present: normal inspection, no evidence of injury Eye Exam: Normal inspection: bilateral, PERRL: bilateral Ears, Nose, Throat: Present: normal ENT inspection, normal pharynx Neck: Present: normal inspection, nontender Respiratory: Present: no respiratory distress, normal breath sounds, chest nontender, decreased breath sounds Cardiovascular/Chest: Present: regular rate, rhythm, no murmur, normal peripheral pulses Gastrointestinal/Abdominal: Present: tenderness - tender epigastrum and LUQ, no guarding or rebound. Back Exam: Present: normal inspection, normal range of motion, no vertebral tenderness Extremity Exam: Present: normal inspection, non-tender, normal range of motion, no edema Neurological Exam: Present: alert, oriented, normal mood/affect, no motor/sensory deficits Skin Exam: Present: normal color, warm/dry Lymphatic Exam: Present: no adenopathy Progress - Results and Orders Patient's Lab Results:: I have reviewed the patient's lab results. - Vital Signs Patient's Vital Signs:: I have reviewed the patient's vital signs. Vital Signs: Vital Signs 05/15/20 22:35 Pulse Rate 112 H Respiratory Rate 18 Blood Pressure 138/87 O2 Sat by Pulse Oximetry 98 - Progress/Reassessment Chief Complaint: Abdominal Pain Progress:: Improved Progress Note-Subjective: 05/15/20 23:45 Lactic acid is 3.0, but no source of infection. Amylase and lipase normal. WBC normal, although slightly left shifted. 05/15/20 23:46 Plan - Plan Plan: Unable to eat or drink due to epigastric pain, likely needs upper GI endoscopy. Admit for observation, pain control, possible UGIE. Departure Clinical Impression: Epigastric abdominal pain - Departure Disposition: Still a patient Condition: Fair
[2020-05-15 23:00] LABS: Hematocrit 39.4 % (37.0-47.0); Hemoglobin 12.8 gm/dL (12.5-16.0); Mean Cell Volume 94.9 fl (78-100); Mean Corpuscular Hemoglobin 30.8 pg (27-31); Mean Corpuscular Hgb Conc 32.5 g/dl (32-36); Neutrophil # 5.5 K/mm3 (1.3-6.0); Neutrophil % 80.1 % (42-75.0); Platelet Count 323 K/mm3 (150-450); Red Blood Count 4.15 M/mm3 (4.2-5.4); Red Cell Distribution Width 13.6 % (11.5-14.0); White Blood Count 6.9 K/mm3 (4.0-10.5)
[2020-05-15 23:30] LABS: Anion Gap 17.7 mmol/L (6.8-13.8); BUN/Creatinine Ratio 9.5 (9.0-21.6); Bilirubin, Total 0.2 mg/dL (0.0-1.1); Ca. Corrected For Albumin 8.7 mg/dL (8.4-10.2); Carbon Dioxide 23.9 mmol/L (24-32.6); Potassium 3.6 mmol/L (3.4-4.6); Total Protein 8.2 gm/dL (6.2-8.2)
[2020-05-15] MEDS ORDERED: NORMAL SALINE 1,000 ML IV ONE (23:55)
[2020-05-16] MEDS ORDERED: HYDROmorphone HCL 1 MG/ML DISP.SYRIN IV ONE (00:02)
[2020-05-16 00:07] LABS: Urine Appearance Clear (CLEAR); Urine Bacteria None Seen; Urine Bilirubin Negative (NEGATIVE); Urine Blood Negative /ul (NEGATIVE); Urine Color Yellow; Urine Ketone Negative (NEGATIVE); Urine Nitrite Negative (NEGATIVE); Urine Protein 15 mg/dL (NEGATIVE); Urine RBC None Seen /hpf (0-5); Urine Specific Gravity 1.015 SP.GR. (1.005-1.010); Urine Squamous Epithelial Cell None Seen /hpf; Urine Urobilinogen Normal (NORMAL); Urine WBC None Seen /hpf (0-5); Urine pH >=9 pH (5.0-7.0)
[2020-05-16] MEDS ORDERED: PANTOPRAZOLE SODIUM 40 MG/100 ML PIGGYBACK IV ONE (00:07)
[2020-05-16] MEDS ORDERED: MAG HYDROX/ALUMINUM HYD/SIMETH 30 ML UDC PO ONE ×2 (00:09→11:18)
[2020-05-16] MEDS ORDERED: LIDOCAINE HCL 20 ML UDC PO ONE ×3 (00:09→20:04)
[2020-05-16] MEDS ORDERED: POTASSIUM CHLORIDE 20 MEQ in DEXTROSE 5%-0.5 NORMAL SALINE 990 ML IV SCH (00:30)
[2020-05-16] MEDS: HYDROmorphone HCL 1 MG/ML DISP.SYRIN IV PRN ×5 (02:07→09:59)
[2020-05-16] MEDS: ONDANSETRON HCL/PF 2 MG/ML VIAL IV PRN ×2 (09:56→19:55)
[2020-05-16] MEDS: POTASSIUM CHLORIDE 20 MEQ in DEXTROSE 5%-0.5 NORMAL SALINE 990 ML IV SCH ×2 (10:06→17:21)
[2020-05-16] MEDS ORDERED: SUCRALFATE 1 G/10 ML UDC PO ONE ×2 (11:18→20:03)
[2020-05-16] MEDS ORDERED: BELLADONNA ALKALOIDS/PHENOBARB ELIXIR PO ONE ×2 (11:18→20:04)
[2020-05-16] MEDS: PANTOPRAZOLE SODIUM 40 MG TABLET.EC PO SCH (11:48)
[2020-05-16] MEDS ORDERED: SUCRALFATE 1 G TABLET PO ONE (15:41)
[2020-05-16] MEDS: SUCRALFATE 1 G TABLET PO SCH ×2 (16:57→21:35)
[2020-05-16] MEDS ORDERED: SUCRALFATE 1 G/10 ML UDC ONE (20:35)
--- NOTE | 2020-05-16 23:31 | HP ---
Chief Complaint - Chief Complaint Date of Service: 05/16/20 Time of Service: 09:15 Chief Complaint: Epigastric pain History of Present Illness: Amira is a 39 yo female presenting to [facility] ER with severe epigastric abdominal pain. She reports episodes like this every few months. She has been on prednisone recently due to contact dermatitis and she also reports having these episodes associated with periods and it is that time as well. She denies blood in stool. No vomiting. Pain is located at epigastric site and worse with food. Nothing has helped. Medical History (Last Reviewed 05/16/20 @ 01:32 by Karen Ochoa RN) Duodenal ulcer (Acute) Onset Date: 04/08/19 Dr. Venus Kohler, [facility]. Bipolar 1 disorder Onset Date: Unknown Scoliosis Onset Date: Unknown Vitamin deficiency Onset Date: Unknown History of frequent headaches Onset Date: Unknown Major depression Onset Date: Unknown Surgical History: Surgical History (Last Reviewed 05/16/20 @ 01:32 by Karen Ochoa RN) History of esophagogastroduodenoscopy (EGD) Onset Date: 04/08/19 Dr. Venus Kohler, [facility]. Duodenal ulcer. 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 Absent: Weakness, Chills EENTM: Present: No Symptoms Reported Respiratory: Absent: Shortness of Breath Cardiac: Absent: Chest Pain, Edema, Palpitations Abdominal: Present: Hematemesis, Abdominal Pain, Bright blood from rectum. Absent: Nausea, Vomiting, Melena Genitourinary: Present: Urgency. Absent: Burning Musculoskeletal: Present: Back Pain. Absent: Joint Pain Neurological: Present: Headache. Absent: Anxiety Skin: Present: Lesions. Absent: Lumps Endocrine: Present: Excessive Sweating, Increased Thirst Immunizations: IMMUNIZATION HX Immunizations Up to Date Yes History of Influenza Vaccine Yes Hx Pneumococcal Vaccination No Allergies/Adverse Reactions: Allergies Allergy/AdvReac Type Severity Reaction Status Date / Time levofloxacin [From Levaquin] Allergy Intermediate Hives Verified 05/15/20 22:38 Home Medications: HOME MEDICATIONS pantoprazole 40 mg tablet,delayed release 40 mg PO DAILY #30 tab 02/26/20 [Last Taken Unknown] sucralfate 1 gram tablet 1 g PO ACHS #60 tab 02/26/20 [Last Taken Unknown] Exam - Exam Vital Signs: Vital Signs - Last Taken Temp 36.9 C 05/16/20 23:08 Pulse 68 05/16/20 23:08 Resp 16 05/16/20 23:08 BP 121/77 05/16/20 23:08 Pulse Ox 100 05/16/20 23:08 Constitutional: Present: Alert, Oriented x3, Cooperative ENT Exam: Present: hearing grossly normal Eye Exam: bilateral eye: normal inspection Respiratory: Present: lungs clear, normal breath sounds, no respiratory distress Cardiovascular/Chest: Present: regular rate, rhythm, no edema Peripheral Pulses: radial (R): 2+, radial (L): 2+ Abdomen: Present: Normal bowel sounds, soft, tender - epigastric Skin Exam: Present: normal color, warm/dry, no cyanosis Neurologic: Present: alert, normal mood/affect, oriented x 3 Appearance: Present: appropriate appearance, appropriate insight Eye contact: Present: cooperative, good eye contact, normal speech Diagnostic Studies: Abnormal Lab Results 05/15/20 05/15/20 05/15/20 Range/Units 22:50 22:50 23:45 Carbon Dioxide 23.9 L (24-32.6) mmol/L Anion Gap 17.7 H (6.8-13.8) mmol/L Random Glucose 128 H (70-110) mg/dL Lactic Acid, Venous 3.0 H* (0.4-2.0) mmol/L Lipase 66 L (73-393) U/L Urine Protein 15 H (NEGATIVE) mg/dL Laboratory Results WBC 6.9 K/mm3 (4.0-10.5) 05/15/20 22:50 RBC 4.15 M/mm3 (4.2-5.4) L 05/15/20 22:50 Hgb 12.8 gm/dL (12.5-16.0) 05/15/20 22:50 Hct 39.4 % (37.0-47.0) 05/15/20 22:50 MCV 94.9 fl (78-100) 05/15/20 22:50 MCH 30.8 pg (27-31) 05/15/20 22:50 MCHC 32.5 g/dl (32-36) 05/15/20 22:50 RDW 13.6 % (11.5-14.0) 05/15/20 22:50 Plt Count 323 K/mm3 (150-450) 05/15/20 22:50 MPV 10.0 fl (8-12.5) 05/15/20 22:50 Immature Gran % (Auto) 0.30 % (0.001-0.429) 05/15/20 22:50 Immature Gran # (Auto) 0.02 K/mm3 (0.000-0.0310) 05/15/20 22:50 Neutrophils % 80.1 % (42-75.0) H 05/15/20 22:50 Lymphocytes % 13.4 % (20-51) L 05/15/20 22:50 Monocytes % 5.5 % (0.0-9) 05/15/20 22:50 Eosinophils % 0.4 % (0.0-3.0) 05/15/20 22:50 Basophils % 0.3 % (0.0-1.0) 05/15/20 22:50 Nucleated RBC % 0.0 k/mm3 (0-1) 05/15/20 22:50 Neutrophils # 5.5 K/mm3 (1.3-6.0) 05/15/20 22:50 Lymphocytes # 0.93 k/mm3 (1.5-3.5) L 05/15/20 22:50 Monocytes # 0.4 k/mm3 (0.0-1.0) 05/15/20 22:50 Eosinophils # 0.0 k/mm3 (0.0-0.7) 05/15/20 22:50 Absolute Basophils 0.0 k/mm3 (0.0-0.1) 05/15/20 22:50 Sodium 142 mmol/L (132-142) 05/15/20 22:50 Plasma Sodium 142 mmol/L (130-142) 05/15/20 22:50 Potassium 3.6 mmol/L (3.4-4.6) 05/15/20 22:50 Chloride 104 mmol/L (97-106) 05/15/20 22:50 Carbon Dioxide 23.9 mmol/L (24-32.6) L 05/15/20 22:50 Anion Gap 17.7 mmol/L (6.8-13.8) H 05/15/20 22:50 BUN 8 mg/dL (3-23) 05/15/20 22:50 Creatinine 0.84 mg/dL (0.4-1.4) 05/15/20 22:50 Est GFR (Non-Af Amer) 81 mL/min (60-130) 05/15/20 22:50 BUN/Creatinine Ratio 9.5 (9.0-21.6) 05/15/20 22:50 Random Glucose 128 mg/dL (70-110) H 05/15/20 22:50 Lactic Acid, Venous 1.8 mmol/L (0.4-2.0) 05/16/20 01:55 Calcium 9.0 mg/dL (7.9-10.9) 05/15/20 22:50 Calcium Adj for Albumin 8.7 mg/dL (8.4-10.2) 05/15/20 22:50 Total Bilirubin 0.2 mg/dL (0.0-1.1) 05/15/20 22:50 AST 33 U/L (0-48) 05/15/20 22:50 ALT 37 U/L (19-67) 05/15/20 22:50 Alkaline Phosphatase 69 U/L (50-170) 05/15/20 22:50 Total Protein 8.2 gm/dL (6.2-8.2) 05/15/20 22:50 Albumin 4.0 gm/dl (3.4-5.0) 05/15/20 22:50 Amylase 49 U/L (25-115) 05/15/20 22:50 Lipase 66 U/L (73-393) L 05/15/20 22:50 Serum HCG, Qual Negative (NEGATIVE) 05/15/20 22:50 Urine Color Yellow 05/15/20 23:45 Urine Appearance Clear (CLEAR) 05/15/20 23:45 Urine pH >=9 pH (5.0-7.0) 05/15/20 23:45 Ur Specific [place] 1.015 SP.GR. (1.005-1.010) 05/15/20 23:45 Urine Protein 15 mg/dL (NEGATIVE) H 05/15/20 23:45 Urine Glucose (UA) Negative mg/dL (NEGATIVE) 05/15/20 23:45 Urine Ketones Negative mg/dL (NEGATIVE) 05/15/20 23:45 Urine Blood Negative /ul (NEGATIVE) 05/15/20 23:45 Urine Nitrate Negative (NEGATIVE) 05/15/20 23:45 Urine Bilirubin Negative mg/dl (NEGATIVE) 05/15/20 23:45 Prot Sulfosalicylic Acd Negative mg/dL (0) 05/15/20 23:45 Urine Urobilinogen Normal EU/dl (NORMAL) 05/15/20 23:45 Ur Leukocyte Esterase Negative /ul (NEGATIVE) 05/15/20 23:45 Urine RBC None seen /hpf (0-5) 05/15/20 23:45 Urine WBC None seen /hpf (0-5) 05/15/20 23:45 Ur Epithelial Cells 0-5 /hpf (0-5) 05/15/20 23:45 Ur Squamous Epith Cells None seen /hpf (NONE) 05/15/20 23:45 Urine Bacteria None seen (NONE) 05/15/20 23:45 Urine Culture Comments No culture indicated 05/15/20 23:45 Assessment/Plan - Narrative Narrative: Amira is having severe epigastric pain suspect from gastritis or ulcer. No evidence of bleeding. Will treat with protonix and carafate. She was requiring IV dilaudid for pain severity. Will stop this and attempt to control with acid treatment. If pain is uncontrolled may need EGD. Will make NPO at midnight and consult surgery if symptoms not improved. - Assessment/Plan (1) Epigastric abdominal pain Problem: Acute
[2020-05-17] MEDS: POTASSIUM CHLORIDE 20 MEQ in DEXTROSE 5%-0.5 NORMAL SALINE 990 ML IV SCH ×3 (01:06→17:17)
[2020-05-17] MEDS ORDERED: HYDROmorphone HCL 1 MG/ML DISP.SYRIN IV ONE ×2 (02:15→08:51)
[2020-05-17] MEDS: ONDANSETRON HCL/PF 2 MG/ML VIAL IV PRN ×3 (02:42→14:05)
[2020-05-17] MEDS: PANTOPRAZOLE SODIUM 40 MG TABLET.EC PO SCH (06:43)
[2020-05-17] MEDS: SUCRALFATE 1 G TABLET PO SCH ×4 (06:44→21:03)
[2020-05-17 09:39] LABS: Hematocrit 33.8 % (37.0-47.0); Mean Cell Volume 97.1 fl (78-100); Mean Corpuscular Hemoglobin 31.6 pg (27-31); Mean Corpuscular Hgb Conc 32.5 g/dl (32-36); Mean Platelet Volume 10.2 fl (8-12.5); Neutrophil # 5.1 K/mm3 (1.3-6.0); Platelet Count 220 K/mm3 (150-450); Red Blood Count 3.48 M/mm3 (4.2-5.4); Red Cell Distribution Width 13.6 % (11.5-14.0); White Blood Count 6.2 K/mm3 (4.0-10.5)
[2020-05-17 09:44] LABS: Albumin * 3.3 gm/dl (3.4-5.0); Anion Gap 12.8 mmol/L (6.8-13.8); BUN/Creatinine Ratio 5.6 (9.0-21.6); Bilirubin, Total 0.3 mg/dL (0.0-1.1); Ca. Corrected For Albumin 8.7 mg/dL (8.4-10.2); Calcium * 8.5 mg/dL (7.9-10.9); Carbon Dioxide 22.7 mmol/L (24-32.6); Potassium 3.5 mmol/L (3.4-4.6); Total Protein 6.8 gm/dL (6.2-8.2)
[2020-05-17] MEDS ORDERED: PROPOFOL VIAL IV ONE (11:35)
--- NOTE | 2020-05-17 12:04 | CONS ---
[facility] - General Date of Service: 05/17/20 Source: patient, family, RN notes reviewed, old records Exam Limitations: no limitations - History of Present Illness Timing/Duration: other Modifying Factors - (Worsens): Reports: movement Modifying Factors - (Improves): Reports: other - Taking a shower Allergies/Adverse Reactions: Allergies levofloxacin [From Levaquin] Allergy (Intermediate, Verified 05/15/20 22:38) Hives Home Medications: Home Medications Medication Instructions Recorded Last Taken pantoprazole 40 mg tablet,delayed 40 mg PO DAILY #30 tab 02/26/20 Unknown release sucralfate 1 gram tablet 1 g PO ACHS #60 tab 02/26/20 Unknown Procedures CLOSURE SKIN & SUBCUTANEOUS NEC (02/12/10) Medications - Medications Current Medications: Current Medications Potassium Chloride 20 meq/ (Dextrose/Sodium Chloride) 1,000 mls @ 125 mls/hr IV .Q8H [facility] Stop: 06/15/20 09:31 Last Admin: 05/17/20 09:12 Dose: 125 mls/hr Documented by: Ondansetron HCl (Zofran) 4 mg IV Q6HRT PRN PRN Reason: Nausea Stop: 06/15/20 00:28 Last Admin: 05/17/20 09:12 Dose: 4 mg Documented by: Pantoprazole Sodium (Protonix) 40 mg PO DAILY@0700 DEANNA Stop: 06/15/20 11:31 Last Admin: 05/17/20 06:43 Dose: 40 mg Documented by: Sucralfate (Carafate) 1 g PO ACHS DEANNA Stop: 06/15/20 17:01 Last Admin: 05/17/20 06:44 Dose: 1 g Documented by: Review of Systems - Review of Systems Generalized/Overall Review: Absent: Chills, Fever EENTM: Present: No Symptoms Reported Respiratory: Present: No Symptoms Reported Cardiac: Present: No Symptoms Reported Abdominal: Present: Abdominal Pain, Other - She has not moved her bowels for 2 days, usually goes every day Musculoskeletal: Present: No Symptoms Reported Neurological: Present: No Symptoms Reported Skin: Present: No Symptoms Reported Endocrine: Present: No Symptoms Reported Physical Examination - Exam Vital Signs: Vital Signs - Last Taken Temp 36.7 C 05/17/20 10:41 Pulse 52 L 05/17/20 10:41 Resp 18 05/17/20 10:41 BP 141/79 H 05/17/20 10:41 Pulse Ox 99 05/17/20 10:41 O2 Oxygen Delivery Method Room Air Constitutional: Present: Alert, Oriented x3, Well developed, Well nourished, Other - She states she has severe pain but appears relaxed and was watching TV when I entered the room ENT Exam: Present: normal ENT inspection Eye Exam: bilateral eye: normal inspection Neck: Present: full range of motion, normal inspection Breasts: Present: Exam deferred Respiratory: Present: no respiratory distress Cardiovascular/Chest: Present: regular rate, rhythm Abdomen: Present: other - Very tympanitic throughout but no percussion tender ness. Soft no discrete point tenderness to palpation and no rebound tenderness elicited. The patient winces but does not guard /Rectal: Present: Exam deferred Extremity: Present: normal inspection Skin Exam: Present: normal color, warm/dry Neurologic: Present: test engineering intern II-XII nml as tested, normal cerebellar test Appearance: Present: appropriate appearance, appropriate insight, neat, no memory impairment Eye contact: Present: cooperative, good eye contact, normal speech Thoughts: Present: normal thought pattern - Results and Findings: Lab/Microbiology results last 24 hrs: Abnormal/Pending Laboratory Last 24 HRS 05/17/20 05/17/20 09:23 09:23 RBC 3.48 L Hgb 11.0 L Hct 33.8 L MCH 31.6 H Neutrophils % 82.0 H Lymphocytes % 10.5 L Lymphocytes # 0.65 L Carbon Dioxide 22.7 L BUN/Creatinine Ratio 5.6 L Random Glucose 115 H Albumin 3.3 L Lipase 66 L - Assessments/Findings (1) Epigastric abdominal pain Diagnosis(s): She does give a long history of "acid reflux" with having to sit up at bed at night because of the reflux. She has had multiple previous episodes of abdom inal pain which required hospitalization and pain medication. She states "they tell me I have ulcers" but they cannot figure out what is going on. Currently she has no peritoneal signs and her laboratory exams and vital signs have been normal. Pamphlets on EGD and GERD were reviewed with her and given to her. The risks and possible complications of EGD were explained. After an interactive dis cussion her questions were answered to her apparent satisfaction and she has given informed consent for EGD. We will also obtain a KUB to assess her bowel gas pattern as she has not moved her bowels for 2 days and this may be a contributing factor to her pain. Problem: Acute
--- NOTE | 2020-05-17 12:19 | ANES ---
Anesthesia Pre Procedure Eval Vitals/Labs: Last Vital Signs Temp 36.7 C 05/17/20 10:41 Pulse 52 L 05/17/20 10:41 Resp 18 05/17/20 10:41 BP 141/79 H 05/17/20 10:41 Pulse Ox 99 05/17/20 10:41 HOME MEDICATIONS pantoprazole 40 mg tablet,delayed release 40 mg PO DAILY #30 tab 02/26/20 [Last Taken Unknown] sucralfate 1 gram tablet 1 g PO ACHS #60 tab 02/26/20 [Last Taken Unknown] Allergies/Adverse Reactions: Allergies Allergy/AdvReac Type Severity Reaction Status Date / Time levofloxacin [From Levaquin] Allergy Intermediate Hives Verified 05/15/20 22:38 - Planned Procedure Planned Procedure: Epigastric Pain Medication List Reviewed:: Yes Allergies Verified: Yes Medical History (Last Reviewed 05/17/20 @ 12:18 by Choco Jarvis CRNA) Duodenal ulcer (Acute) Onset Date: 04/08/19 ELIZA Bennett. Bipolar 1 disorder Onset Date: Unknown Scoliosis Onset Date: Unknown Vitamin deficiency Onset Date: Unknown History of frequent headaches Onset Date: Unknown Major depression Onset Date: Unknown Surgical History (Last Reviewed 05/17/20 @ 12:18 by Choco Jarvis CRNA) History of esophagogastroduodenoscopy (EGD) Onset Date: 04/08/19 Dr. Venus Kohler WON. Duodenal ulcer. History of tubal ligation Onset Date: Unknown Family History (Last Reviewed 05/17/20 @ 12:18 by Choco Jarvis CRNA) Other No family history of disorders - Family Anesthesia History Family History:: no untoward family reactions to anesthesia - Airway/Neck/Teeth Within Normal Limits:: Yes Teeth Condition: intact Neck Exam: full range of motion Mallampatti Score: 1 Thyromental (T-M) distance: > 6 cm Mandibulo Hyoid distance: > 3 cm - Respiratory Respiratory Physical: lungs clear Smoking Status: Former smoker Sleep Apnea currently treated: No Sleep Apnea by current assessment: No - Cardiovascular Tolerate Activity: Good Heart Sounds: S1 & S2, Regular - Gastrointestinal NPO since: MN - Anesthesia Assessment and Plan ASA Class: PS, II Anesthesia Type Plan: MAC Planned difficult intubation/equipment available: No
--- NOTE | 2020-05-17 13:21 | ANES ---
Post Anesthesia Discharge - Transfer of Care Transfer of Care handoff given to nurse: Yes - Anesthesia Post Op Note Anesthesia Post Op Note: Care transferred to paint booth operator
--- NOTE | 2020-05-17 13:22 | ANES ---
Post Anesthesia Assessment - Vital Signs Vitals: Last Vital Signs Temp 36.7 C 05/17/20 10:41 Pulse 52 L 05/17/20 10:41 Resp 18 05/17/20 10:41 BP 141/79 H 05/17/20 10:41 Pulse Ox 99 05/17/20 10:41 Airway Patency: Normal - Mental Status Level Of Consciousness: Awake - Pain Level Pain Score: 3 - N/V Assessment Nausea/Vomiting Presence: None Dehydration:: No
--- NOTE | 2020-05-17 14:43 | OR ---
Operative Report - Dictated Report Narrative: Operative Report Date of operation: 05/17/2020 Preoperative diagnosis: Epigastric pain Postoperative diagnosis: Esophagitis, hiatal hernia, gastritis (pathology and CLOtest pending) Operation: EGD with biopsies Surgeon: Dr Cartwright Anesthesia: DAVID Jarvis CRNA Indications for procedure: The patient is a 39-year-old female who presented to the emergency room on 05/15/2020 with severe epigastric pain. She has chronic GERD symptoms and was on a short course of prednisone for skin disorder. She reports significant reflux symptoms Findings: Distal esophageal inflammation with irregular Z line. Significant hiatal hernia. Vera gastritis. No ulcers. Normal duodenum (pathology and CLOtest pending) The patient did have a high anesthetic requirement and a somewhat combative reaction to propofol Narrative of procedure: The patient was identified preoperatively, and prior to the administration of anesthetic a multidisciplinary timeout was observed With the patient in the recumbent position, a bite-block was placed, intravenous sedation administered, and the patient's eyes covered with a towel. The flexible fiberoptic gastroscope was advanced into the posterior pharynx which appeared normal. The supraglottic larynx appeared normal. The cords appeared normal, moved well, and opposed in the midline. The scope was advanced under direct vision into the proximal esophagus which appeared normal. The esophagus appeared freely distensible with normal mucosa. The esophageal mucosa appeared normal down to the gastroesophageal junction which where there was a linear area of friability and erythema. The GE junction mucosal transition was somewhat irregular however the GE junction appeared widely distensible. There was a significant sliding hiatal hernia. The scope was advanced into the stomach proper which was insufflated with air. Immediately apparent was vera gastric erythema however no [place] ulcerations or neoplastic lesions were appreciated including a retroflexed view of the gastric fundus which clearly demonstrated the hiatal hernia. The pylorus appeared patent. The scope was advanced into the duodenal bulb which appeared normal. The scope was advanced further to the horizontal portion of the duodenum which appeared normal, specifically the villous architecture appeared well preserved and clear bile was present. The scope was slowly withdrawn through the duodenal bulb with confirmation that no active ulcer was present. The scope was withdrawn into the stomach and indirect sales representative biopsies of gastric mucosa obtained for CLOtest and pathology. The biopsy sites were seen to be hemostatic. The insufflated air was removed from the stomach and the scope withdrawn to just proximal to the GE junction which was biopsied. The biopsy sites appeared hemostatic. The stomach was again emptied of insufflated air, the scope withdrawn from the patient, and the procedure terminated. The patient tolerated the anesthetic and procedure well without complication and was transferred back to her room awake and in stable condition. reviewed and electronically signed
[2020-05-17] MEDS ORDERED: DIATRIZOATE MEGLUMINE, SODIUM 30 ML BTL PO ONE (14:56)
[2020-05-17] MEDS ORDERED: ACETAMINOPHEN 1,000 MG/100 ML BTL IV ONE (15:15)
[2020-05-17] MEDS ORDERED: NALBUPHINE HCL 10 MG/ML AMPUL IV PRN (16:32)
[2020-05-17] MEDS ORDERED: SUMAtriptan SUCCINATE 50 MG TABLET PO ONE ×2 (17:26→19:15)
[2020-05-17] MEDS ORDERED: GABAPENTIN 300 MG CAPSULE PO PRN (20:48)
[2020-05-18] MEDS: POTASSIUM CHLORIDE 20 MEQ in DEXTROSE 5%-0.5 NORMAL SALINE 990 ML IV SCH (01:17)
[2020-05-18] MEDS: SUCRALFATE 1 G TABLET PO SCH (06:47)
[2020-05-18] MEDS: PANTOPRAZOLE SODIUM 40 MG TABLET.EC PO SCH (06:47)
[2020-05-18] MEDS ORDERED: MECLIZINE HCL 25 MG TABLET PO ONE (07:40)
--- NOTE | 2020-05-18 08:37 | PN ---
Subjective - Date and Time Seen Date: 05/17/20 Time: 12:30 Subjective Narrative: Continues to have 10/10 abdominal pain, moaning and writhing in pain. EGD performed showing gastritis. No ulcer present. Small hiatal hernia present. She has had a little relief of pain with everything that has been tried but pain always comes back shortly after at full strength. Have tried protonix, GI cocktail, carafate, diluidid, IV tylenol, imitrex. Will evaluate with abdominal CT as I am unsure on the cause to her pain. Objective - Vitals Vitals: Last Vital Signs Selected Entries 05/17/20 07:11 Temperature 36.7 C Pulse Rate 65 Respiratory Rate 17 Blood Pressure 120/78 O2 Sat by Pulse Oximetry 100 Oxygen Delivery Method Room Air - Abnormal Lab Findings Abnormal Lab Findings: Abnormal Lab Results 05/17/20 05/17/20 Range/Units 09:23 09:23 RBC 3.48 L (4.2-5.4) M/mm3 Hgb 11.0 L (12.5-16.0) gm/dL Hct 33.8 L (37.0-47.0) % MCH 31.6 H (27-31) pg Neutrophils % 82.0 H (42-75.0) % Lymphocytes % 10.5 L (20-51) % Lymphocytes # 0.65 L (1.5-3.5) k/mm3 Carbon Dioxide 22.7 L (24-32.6) mmol/L BUN/Creatinine Ratio 5.6 L (9.0-21.6) Random Glucose 115 H (70-110) mg/dL Albumin 3.3 L (3.4-5.0) gm/dl Lipase 66 L (73-393) U/L - Exam Constitutional: Present: Alert, Oriented x3, Cooperative, Moderate distress ENT Exam: Present: hearing grossly normal Respiratory: Present: lungs clear, normal breath sounds Cardiovascular/Chest: Present: regular rate, rhythm, no edema, no murmur Abdomen: Present: Normal bowel sounds, soft, nondistended, tender - palpation does not increase pain by much. Absent: guarding Skin Exam: Present: normal color, warm/dry, no cyanosis Assessment/Plan Plan Narrative: Unclear etiology to pain. There is mild gastritis but nothing that should cause severe pain. Will evaluate with abdominal CT. Considering abdominal migraines. She does report a history of regular migraines. Imitrex did help with pain briefly. Will give gabapentin at bedtime. - Problems/Diagnosis (1) Epigastric abdominal pain Problem: Acute
--- NOTE | 2020-05-18 08:54 | DS ---
(1) Epigastric abdominal pain Problem: Acute Date of Discharge:: 05/18/20 Hospital Course: Amira was admitted with intractable severe epigastric pain. She was given GI cocktails, prontonix, and carafate. All helped initially but the pain would return. She was placed on IV dilaudid prn due to the severity of the pain at times. Surgery was consulted and an EGD was performed. This showed gastritis and small hiatal hernia. No ulcers present. She continued to have severe pain. I found out that she had a prior history of migraines and that these abdominal pains are episodic every 3-4 months similar to her migraine frequency. She was given Imitrex and abdominal pain improved but then returned. She had a CT of her abdomen that was normal. She was given gabapentin but this made her extremely dizzy. Discussed with her that there are no concerning findings from EGD or CT and she is ok to discharge to home. I still do not have an exact known to her abdominal pain, but I suspect it is likely abdominal migraines or other functional abdominal pain. Will treat with amitriptyline at bedtime and imitrex prn. She does have gastritis so I will continue protonix for a month. Procedures Performed: see notes below - EGD 05/17/20 Results and Findings: Lab Pending Results 05/15/20 22:50: WBC 6.9, RBC 4.15 L, Hgb 12.8, Hct 39.4, MCV 94.9, MCH 30.8, MCHC 32.5, RDW 13.6, Plt Count 323, MPV 10.0, Immature Gran % (Auto) 0.30, Immature Gran # (Auto) 0.02, Neutrophils % 80.1 H, Lymphocytes % 13.4 L, Monocytes % 5.5, Eosinophils % 0.4, Basophils % 0.3, Nucleated RBC % 0.0, Neutrophils # 5.5, Lymphocytes # 0.93 L, Monocytes # 0.4, Eosinophils # 0.0, Absolute Basophils 0.0 05/15/20 22:50: Sodium 142, Plasma Sodium 142, Potassium 3.6, Chloride 104, Carbon Dioxide 23.9 L, Anion Gap 17.7 H, BUN 8, Creatinine 0.84, Est GFR (Non-Af Amer) 81, BUN/Creatinine Ratio 9.5, Random Glucose 128 H, Calcium 9.0, Calcium Adj for Albumin 8.7, Total Bilirubin 0.2, AST 33, ALT 37, Alkaline Phosphatase 69, Total Protein 8.2, Albumin 4.0, Amylase 49, Lipase 66 L 05/15/20 22:50: Lactic Acid, Venous 3.0 H* 05/15/20 22:50: Serum HCG, Qual Negative 05/15/20 23:45: Urine Color Yellow, Urine Appearance Clear, Urine pH >=9, Ur Specific [place] 1.015, Urine Protein 15 H, Urine Glucose (UA) Negative, Urine Ketones Negative, Urine Blood Negative, Urine Nitrate Negative, Urine Bilirubin Negative, Prot Sulfosalicylic Acd Negative, Urine Urobilinogen Normal, Ur Leukocyte Esterase Negative, Urine RBC None seen, Urine WBC None seen, Ur Epithelial Cells 0-5, Ur Squamous Epith Cells None seen, Urine Bacteria None seen, Urine Culture Comments No culture indicated 05/16/20 01:55: Lactic Acid, Venous 1.8 05/17/20 09:23: WBC 6.2, RBC 3.48 L, Hgb 11.0 L, Hct 33.8 L, MCV 97.1, MCH 31.6 H, MCHC 32.5, RDW 13.6, Plt Count 220, MPV 10.2, Immature Gran % (Auto) 0.20, Immature Gran # (Auto) 0.01, Neutrophils % 82.0 H, Lymphocytes % 10.5 L, Monocytes % 6.6, Eosinophils % 0.5, Basophils % 0.2, Nucleated RBC % 0.0, Neutrophils # 5.1, Lymphocytes # 0.65 L, Monocytes # 0.4, Eosinophils # 0.0, Absolute Basophils 0.0 05/17/20 09:23: Sodium 137, Plasma Sodium 137, Potassium 3.5, Chloride 105, Carbon Dioxide 22.7 L, Anion Gap 12.8, BUN 5, Creatinine 0.89, Est GFR (Non-Af Amer) 76, BUN/Creatinine Ratio 5.6 L, Random Glucose 115 H, Calcium 8.5, Calcium Adj for Albumin 8.7, Total Bilirubin 0.3, AST 26, ALT 30, Alkaline Phosphatase 52, Total Protein 6.8, Albumin 3.3 L, Amylase 37, Lipase 66 L 05/17/20 10:20: SARS-CoV-2 (PCR) Not detected 05/17/20 13:07: Pathology Specimen Spec to path Discharge Location: Home Disposition: Home self-care Condition: Fair Discharge Activity: Activity as tolerated Discharge Diet: General/regular food Referrals: Jenaro Mena DO [Primary Care Provider] - One Week Problem Oriented Discharge Instructions to Patient/Family: Abdominal Migraine, Pediatric, Gastritis, Adult, [id number] Prescriptions (Any new or edited meds): Sucralfate [Carafate] 1 g PO ACHS PRN #60 tab PRN Reason: abdominal pain, reflux Transmission Status: Pending to [facility] Amitriptyline HCl [Elavil] 25 mg PO HS #30 tab Transmission Status: Pending to [facility] SUMAtriptan SUCCINATE [Imitrex] 100 mg PO DAILY #9 tab Transmission Status: Pending to [facility] Pantoprazole Sodium [Protonix] 40 mg PO DAILY@0700 #30 tablet. Transmission Status: Pending to [facility] Complete Home Medications List: Complete Home Medication List: pantoprazole 40 mg tablet,delayed release 40 mg PO DAILY #30 tab 02/26/20 sucralfate 1 gram tablet 1 g PO ACHS #60 tab 02/26/20 Amitriptyline HCl [Elavil] 25 mg PO HS #30 tab 05/18/20 Pantoprazole Sodium [Protonix] 40 mg PO DAILY@0700 #30 tablet. 05/18/20 SUMAtriptan SUCCINATE [Imitrex] 100 mg PO DAILY #9 tab 05/18/20 Sucralfate [Carafate] 1 g PO ACHS PRN #60 tab 05/18/20 Forms: Patient Portal Registration
[2020-05-18 10:03] VITALS: BP 120/83
== END 2020-05-18 10:10 | disposition home or self-care (01) ==
LOC: MS 22:32 → ER 22:32 → MS 05-16 01:00
PROVIDERS: ADMIT Family Medicine; ATTEND Family Medicine
DX: R10.13 Epigastric pain; K44.9 Diaphragmatic hernia without obstruction or gangrene; K20.9 Esophagitis, unspecified; G44.009 Cluster headache syndrome, unspecified, not intractable; K29.70 Gastritis, unspecified, without bleeding; Z11.59 Encounter for screening for other viral diseases
CPT/HCPCS: 36415; 74000; 74018; 74019; 74020; 74177; 80053; 81001; 82150; 83605; 83690; 84703; 85025; 87081; 88305; 88312; 88321; 88888; 96365; 96367; 96374; 96375; 96376; 99283; 99285; C9803; G0378; J0131; J2405; Q9963; Q9967